=== PATIENT | male | born 1975 | race Caucasian/White ===

== ENCOUNTER 2016-11-06 11:47 | Observation (INO) | payer MEDICARE, MEDICAID ==
[2016-11-05 12:37] LABS: ASPARTATE AMINO TRANSFERASE 24 U/L (15-37); BLOOD UREA NITROGEN 9 mg/dL (7-18)
[~2016-11-06] VITALS: Ht 182.9 cm; Wt 104.5 kg
[~2016-11-06 11:47] MED LIST: ACET325T14 PO; ALBU18HF INH; ALBU8.5H8 INH; BACITRACIN 50,000 UNIT ONE; DIVA500T2 PO; ENOX40SY4 SQ; HYDR-3240 PO; LABE5VIA13 IV; LACT20SO13 PO; LISI-167 PO; LISI1TAB7 PO; MICA100V3 IV; ONDA4SOL2 IV; ONDA4TAB10 PO; OXYC10TA6 PO; OXYC5TAB3 PO; PANT40VI IV; PIPE4.5V3 IV; POLY1POW PO; SENN-1 PO; VANC1VIA3 PO; VARE0.5T PO
[2016-11-06] MEDS ORDERED: LACTATED RINGERS 1,000 ML IV SCH (12:26)
[2016-11-06 12:28] LABS: DAU SCREEN DISCLAIMER
[2016-11-06] MEDS ORDERED: HYDR-3240 PO (12:28)
[2016-11-06] MEDS ORDERED: OXYC5CAP2 PO (12:28)
[2016-11-06] MEDS ORDERED: LIDOCAINE 1%, 2ML SQ PRN (12:30)
[2016-11-06] MEDS ORDERED: MIDAZOLAM 1 MG/ML, 2ML ONE (13:30)
[2016-11-06] MEDS ORDERED: FENTANYL PF 500 MCG/10ML ONE (13:30)
[2016-11-06] MEDS ORDERED: ALBUTEROL SULFATE 200 PUFFS/8.5 GR INH ONE (13:38)
[2016-11-06] MEDS ORDERED: ROCURONIUM 10 MG/ML ONE (13:38)
[2016-11-06] MEDS ORDERED: ONDANSETRON 2MG/ML, 2ML ONE (13:38)
[2016-11-06] MEDS ORDERED: PROPOFOL 10 MG/ML, 20ML ONE (13:38)
[2016-11-06] MEDS ORDERED: DEXAMETHASONE 4 MG/ML, 1ML ONE (13:38)
[2016-11-06] MEDS ORDERED: SUCCINYLCHOLINE 20 MG/ML, 10ML ONE (13:38)
[2016-11-06] MEDS ORDERED: CEFAZOLIN 1,000 MG ONE (13:38)
[2016-11-06] MEDS ORDERED: METOPROLOL 1 MG/ML, 5ML IV PRN (14:00)
[2016-11-06] MEDS ORDERED: ALBUTEROL/IPRATROPIUM 2.5MG/0.5MG, 3 ML NPPB PRN (14:00)
[2016-11-06] MEDS ORDERED: FENTANYL PF 100 MCG/2ML IV PRN (14:00)
[2016-11-06] MEDS ORDERED: OXYcodone 5 MG/5 ML ORAL.SOL UDC PO PRN (14:00)
[2016-11-06] MEDS ORDERED: MIDAZOLAM 1 MG/ML, 2ML IV PRN (14:00)
[2016-11-06] MEDS ORDERED: ONDANSETRON 2MG/ML, 2ML IVPush PRN ×2 (14:00→16:30)
[2016-11-06] MEDS ORDERED: MEPERIDINE/PF 25MG/0.5ML IVPush PRN (14:00)
[2016-11-06] MEDS ORDERED: EPHEDRINE 50 MG/ML, 1ML IVPush PRN (14:00)
[2016-11-06] MEDS ORDERED: PROMETHAZINE 25 MG/ML, 1ML IV PRN (14:00)
[2016-11-06] MEDS ORDERED: HYDROmorphone 1 MG/ML, 1ML IV PRN (14:00)
[2016-11-06] MEDS ORDERED: hydrALAzine 20 MG/ML, 1ML IV PRN (14:00)
[2016-11-06] MEDS ORDERED: ALBUTEROL/IPRATROPIUM 2.5MG/0.5MG, 3 ML ONE (14:49)
[2016-11-06 15:50] VITALS: BP 141/91
[2016-11-06] MEDS ORDERED: ALBUTEROL SULFATE 2.5MG/0.5ML NPPB PRN (16:30)
[2016-11-06] MEDS ORDERED: HYDROmorphone 2 MG/ML, 1ML IVPush PRN (16:30)
[2016-11-06] MEDS ORDERED: HYDROcodone/APAP 5/325 TABLET PO PRN (16:30)
[2016-11-06] MEDS ORDERED: HYDROmorphone 2MG TABLET PO PRN (16:30)
[2016-11-06] MEDS: OXYcodone/APAP 5/325MG TABLET PO PRN (17:10)
[2016-11-06] MEDS: morphine SULFATE 10 MG/ML, 1ML IVPush PRN ×2 (18:23→20:52)
[2016-11-06 20:02] VITALS: BP 135/93
[2016-11-06] MEDS: LACTATED RINGERS 1,000 ML IV SCH (20:47)
[2016-11-06] MEDS: DIVALPROEX 500 MG TABLET.DR PO SCH (20:48)
[2016-11-06 23:59] VITALS: BP 135/93
[2016-11-07 02:59] VITALS: BP 126/60
[2016-11-07] MEDS: OXYcodone/APAP 5/325MG TABLET PO PRN ×3 (03:54→13:00)
[2016-11-07] MEDS: LACTATED RINGERS 1,000 ML IV SCH ×2 (04:50→13:00)
[2016-11-07] MEDS ORDERED: ENOXAPARIN 40 MG/0.4 ML SQ SCH (06:00)
[2016-11-07 06:43] VITALS: BP 120/72
[2016-11-07] MEDS: DIVALPROEX 500 MG TABLET.DR PO SCH (07:40)
[2016-11-07] MEDS: morphine SULFATE 10 MG/ML, 1ML IVPush PRN (07:40)
[2016-11-07] MEDS ORDERED: LISINOPRIL 10 MG TABLET PO SCH (09:00)
[2016-11-07 15:50] VITALS: BP 121/80
[2016-11-07] MEDS ORDERED: HYDR2TAB29 PO (16:28)
[2016-11-07] MEDS ORDERED: PNEUMOCOCCAL 23 VACCINE IM-VACC ONE (18:30)
[2016-11-07 18:40] VITALS: BP 120/77
== END 2016-11-07 18:46 | disposition home or self-care (01) ==
LOC: OUT 11:47 → 4NOR 15:50 → UNDOADMOB 16:29 → 4NOR 16:29
PROVIDERS: ADMIT Surgery; ATTEND Surgery
DX: K43.2 Incisional hernia without obstruction or gangrene (principal); E66.9 Obesity, unspecified; G47.30 Sleep apnea, unspecified; I10 Essential (primary) hypertension; K66.0 Peritoneal adhesions (postprocedural) (postinfection); Z23 Encounter for immunization
CPT/HCPCS: 36415; 49560; 80053; 80307; 90471; 90732; 94640; 96372; 96374; 96376; C1781; G0378; J0330; J0690; J1100; J1650; J2175; J2250; J2270; J2405; J2704; J3010; J3490; J7120; J7620

== ENCOUNTER 2016-11-09 19:25 | Emergency (ER) | payer MEDICARE, MEDICAID ==
[~2016-11-09] VITALS: Ht 182.9 cm; Wt 105.6 kg
[~2016-11-09 19:25] MED LIST changes: -BACITRACIN 50,000 UNIT ONE; +HYDR2TAB29 PO; +OXYC5CAP2 PO
[2016-11-09] MEDS ORDERED: HYDROmorphone 1 MG/ML, 1ML ONE (20:19)
[2016-11-09] MEDS ORDERED: ONDANSETRON 2MG/ML, 2ML ONE (20:19)
[2016-11-09 20:24] LABS: HEMATOCRIT 43.4 % (39.2-51.8); HEMOGLOBIN 14.8 g/dL (13.7-18.0); WHITE BLOOD COUNT 9.1 x10^3/uL (3.4-10)
[2016-11-09] MEDS ORDERED: SODIUM CHLORIDE 0.9% 1,000ML IVBOLUS ONE (20:30)
[2016-11-09] MEDS ORDERED: SODIUM CHLORIDE FLUSH 10ML SYR IVF ONE (20:30)
[2016-11-09] MEDS ORDERED: HYDROmorphone 1 MG/ML, 1ML IVPush PRN (20:30)
[2016-11-09] MEDS ORDERED: ONDANSETRON 2MG/ML, 2ML IVPush ONE (20:30)
[2016-11-09 20:36] LABS: ASPARTATE AMINO TRANSFERASE 30 U/L (15-37); BLOOD UREA NITROGEN 21 mg/dL (7-18)
[2016-11-09 21:27] VITALS: BP 121/70
[2016-11-09] MEDS ORDERED: OMNIPAQUE 350 MG/ML, 100ML BOTTLE ONE (22:27)
== END 2016-11-09 22:09 | disposition home or self-care (01) ==
LOC: ED 21:50
DX: G89.18 Other acute postprocedural pain (principal); R10.84 Generalized abdominal pain; J45.909 Unspecified asthma, uncomplicated; I10 Essential (primary) hypertension; E78.00 Pure hypercholesterolemia, unspecified; G40.909 Epilepsy, unspecified, not intractable, without status epilepticus; Z88.6 Allergy status to analgesic agent
CPT/HCPCS: 36415; 74177; 80053; 83605; 84145; 85025; 87040; 96374; 96375; 99285; J1170; J2405; Q9967

== ENCOUNTER 2016-11-20 15:45 | Day surgery (SDC) | payer MEDICARE, MEDICAID ==
[~2016-11-20] VITALS: Ht 182.9 cm; Wt 99.7 kg
[2016-11-20] MEDS ORDERED: LIDOCAINE 1%, 2ML ONE (16:09)
[2016-11-20 16:11] VITALS: BP 148/100
[2016-11-20] MEDS ORDERED: MIDAZOLAM 1 MG/ML, 2ML ONE (16:40)
[2016-11-20] MEDS ORDERED: FENTANYL PF 100 MCG/2ML ONE ×3 (16:40→17:35)
[2016-11-20] MEDS ORDERED: CEFOTETAN 2 GM ONE (16:43)
[2016-11-20] MEDS ORDERED: KETOROLAC 30 MG/1 ML ONE (16:43)
[2016-11-20] MEDS ORDERED: PROPOFOL 10 MG/ML, 20ML ONE (16:43)
[2016-11-20] MEDS ORDERED: ONDANSETRON 2MG/ML, 2ML ONE (16:43)
[2016-11-20] MEDS ORDERED: ROCURONIUM 10 MG/ML ONE (16:43)
[2016-11-20] MEDS ORDERED: hydrALAzine 20 MG/ML, 1ML IV PRN (17:30)
[2016-11-20] MEDS ORDERED: LABETALOL 5MG/ML, 20ML IV PRN (17:30)
[2016-11-20] MEDS ORDERED: MEPERIDINE/PF 25MG/0.5ML IVPush PRN (17:30)
[2016-11-20] MEDS ORDERED: OXYcodone 5 MG/5 ML ORAL.SOL UDC PO PRN (17:30)
[2016-11-20] MEDS ORDERED: HYDROmorphone 1 MG/ML, 1ML IV PRN (17:30)
[2016-11-20] MEDS ORDERED: PROMETHAZINE 25 MG/ML, 1ML IV PRN (17:30)
[2016-11-20] MEDS ORDERED: ONDANSETRON 2MG/ML, 2ML IVPush PRN ×2 (17:30→19:30)
[2016-11-20] MEDS ORDERED: ACETAMINOPHEN 325 MG TABLET PO PRN (17:30)
[2016-11-20] MEDS ORDERED: FENTANYL PF 100 MCG/2ML IV PRN (17:30)
[2016-11-20] MEDS ORDERED: ACETAMINOPHEN 650 MG/20.3 ML UDC ONE (17:35)
[2016-11-20] MEDS ORDERED: ACETAMINOPHEN 325 MG TABLET ONE (17:36)
[2016-11-20] MEDS ORDERED: OXYcodone 5 MG/5 ML ORAL.SOL UDC ONE (17:36)
[2016-11-20 18:40] VITALS: BP 122/74
[2016-11-20] MEDS ORDERED: MORPHINE SULFATE 4 MG/ML, 1ML IVPush PRN (19:00)
[2016-11-20] MEDS ORDERED: LACTATED RINGERS 1,000 ML IV SCH (19:00)
[2016-11-20] MEDS ORDERED: OXYcodone/APAP 5/325MG TABLET PO PRN (19:30)
[2016-11-20] MEDS ORDERED: HYDROmorphone 2 MG/ML, 1ML IV PRN (19:30)
[2016-11-20] MEDS ORDERED: HYDROcodone/APAP 5/325 TABLET PO PRN (19:30)
[2016-11-20] MEDS ORDERED: OXYC-302 PO (19:52)
[2016-11-20] MEDS ORDERED: CLIN300C8 PO (19:53)
== END 2016-11-20 20:24 | disposition home or self-care (01) ==
LOC: OR 15:45 → 4NOR 18:19 → OR 20:24
PROVIDERS: ATTEND Surgery
DX: L76.82 Other postprocedural complications of skin and subcutaneous tissue (principal); Y83.8 Other surgical procedures as the cause of abnormal reaction of the patient, or of later complication, without mention of misadventure at the time of the procedure; Y92.9 Unspecified place or not applicable; Z91.013 Allergy to seafood; Z88.6 Allergy status to analgesic agent; F17.200 Nicotine dependence, unspecified, uncomplicated; K21.9 Gastro-esophageal reflux disease without esophagitis; I10 Essential (primary) hypertension; F12.90 Cannabis use, unspecified, uncomplicated
CPT/HCPCS: 11000; J1885; J2250; J2405; J2704; J3010; S0074

== ENCOUNTER 2017-08-02 13:49 | Emergency (ER) | payer MEDICARE, MEDICAID ==
[~2017-08-02] VITALS: Ht 182.9 cm; Wt 93.0 kg
[~2017-08-02 13:49] MED LIST changes: +CLIN300C8 PO; +OXYC-302 PO
[2017-08-02 13:52] VITALS: BP 131/81
[2017-08-02] MEDS ORDERED: OXYcodone/APAP 5/325MG TABLET ONE (14:20)
[2017-08-02] MEDS ORDERED: OXYcodone/APAP 5/325MG TABLET PO ONE (14:30)
== END 2017-08-02 16:22 | disposition home or self-care (01) ==
LOC: ED 16:00
DX: S16.1XXA Strain of muscle, fascia and tendon at neck level, initial encounter (principal); S46.812A Strain of other muscles, fascia and tendons at shoulder and upper arm level, left arm, initial encounter; S60.212A Contusion of left wrist, initial encounter; S50.12XA Contusion of left forearm, initial encounter; F17.200 Nicotine dependence, unspecified, uncomplicated; W17.89XA Other fall from one level to another, initial encounter; Y93.89 Activity, other specified; Y92.099 Unspecified place in other non-institutional residence as the place of occurrence of the external cause; Y99.8 Other external cause status
CPT/HCPCS: 72125; 99284

== ENCOUNTER 2017-11-06 21:34 | Emergency (ER) | payer MEDICARE, MEDICAID ==
[~2017-11-06] VITALS: Ht 182.9 cm; Wt 98.1 kg
[~2017-11-06 21:34] MED LIST changes: -SENN-1 PO; +SENN-92 PO
[2017-11-06] MEDS ORDERED: HYDROcodone/APAP 5/325 TABLET ONE (22:58)
[2017-11-06] MEDS ORDERED: HYDROcodone/APAP 5/325 TABLET PO ONE (23:00)
[2017-11-06 23:13] VITALS: BP 150/95
== END 2017-11-07 00:17 | disposition home or self-care (01) ==
LOC: ED 23:59
DX: S46.911A Strain of unspecified muscle, fascia and tendon at shoulder and upper arm level, right arm, initial encounter (principal); E78.00 Pure hypercholesterolemia, unspecified; I10 Essential (primary) hypertension; G40.909 Epilepsy, unspecified, not intractable, without status epilepticus; W22.8XXA Striking against or struck by other objects, initial encounter; Y93.89 Activity, other specified; Y99.8 Other external cause status; Y92.89 Other specified places as the place of occurrence of the external cause
CPT/HCPCS: 99284

== ENCOUNTER 2018-04-22 19:39 | Emergency (ER) | payer MEDICARE, MEDICAID ==
[~2018-04-22] VITALS: Ht 182.9 cm; Wt 106.6 kg
[2018-04-22 19:53] VITALS: BP 179/115
[2018-04-22 20:45] LABS: BASOPHILS # (AUTO) 0.03 x10^3/uL (0-0.1); BASOPHILS % (AUTO) 1 % (0-1); EOSINOPHILS # (AUTO) 0.18 x10^3/uL (0-0.4); EOSINOPHILS % (AUTO) 3 % (1-7); LYMPHOCYTES # (AUTO) 1.91 x10^3/uL (1-3.4); LYMPHOCYTES % (AUTO) 29 % (22-44); MD NO; MEAN CORPUSCULAR HEMOGLOBIN 30.9 pg (27.5-34.5); MEAN CORPUSCULAR HGB CONC 34.5 g/dL (33.2-36.2); MEAN CORPUSCULAR VOLUME 89.6 fL (81-97); MEAN PLATELET VOLUME 7.9 fL (7.4-10.4); MONOCYTES # (AUTO) 0.55 x10^3/uL (0.2-0.8); MONOCYTES % (AUTO) 8 % (2-9); NEUTROPHILS # (AUTO) 3.91 x10^3/uL (1.8-6.8); NEUTROPHILS % (AUTO) 59 % (42-75); PLATELET COUNT 232 x10^3/uL (130-400); RED BLOOD COUNT 5.56 x10^6/uL (4.38-5.82); RED CELL DISTRIBUTION WIDTH 13.3 % (9.4-14.8)
[2018-04-22 20:56] LABS: ANION GAP 4 mmol/L (5-15); CALCIUM 8.8 mg/dL (8.5-10.1); CHLORIDE 107 mmol/L (98-107); CREATININE 0.93 mg/dL (0.7-1.3)
--- NOTE | 2018-04-22 22:23 | NUR ---
PT NOT IN LOBBY WHEN CALLED FOR VITALS @ [id number].
--- NOTE | 2018-04-22 22:43 | NUR ---
NO ANSWER WHEN CALLED IN LOBBY
--- NOTE | 2018-04-22 22:59 | NUR ---
NOT IN LOBBY WHEN CALLED FOR ROOM
== END 2018-04-22 23:01 | disposition left against medical advice (07) ==
LOC: ED 22:55
DX: S69.91XA Unspecified injury of right wrist, hand and finger(s), initial encounter (principal); W18.30XA Fall on same level, unspecified, initial encounter; Y93.9 Activity, unspecified; Y92.89 Other specified places as the place of occurrence of the external cause; Y99.8 Other external cause status
CPT/HCPCS: 36415; 80048; 85025; 99284

== ENCOUNTER 2018-04-23 13:33 | Emergency (ER) | payer MEDICARE, MEDICAID ==
[2018-04-23 14:58] LABS: BASOPHILS # (AUTO) 0.03 x10^3/uL (0-0.1); BASOPHILS % (AUTO) 1 % (0-1); EOSINOPHILS # (AUTO) 0.22 x10^3/uL (0-0.4); EOSINOPHILS % (AUTO) 3 % (1-7); LYMPHOCYTES # (AUTO) 1.94 x10^3/uL (1-3.4); LYMPHOCYTES % (AUTO) 26 % (22-44); MD NO; MEAN CORPUSCULAR HEMOGLOBIN 30.8 pg (27.5-34.5); MEAN CORPUSCULAR HGB CONC 34.6 g/dL (33.2-36.2); MEAN CORPUSCULAR VOLUME 88.9 fL (81-97); MONOCYTES # (AUTO) 0.71 x10^3/uL (0.2-0.8); MONOCYTES % (AUTO) 9 % (2-9); NEUTROPHILS # (AUTO) 4.66 x10^3/uL (1.8-6.8); NEUTROPHILS % (AUTO) 62 % (42-75); PLATELET COUNT 230 x10^3/uL (130-400); RED BLOOD COUNT 5.69 x10^6/uL (4.38-5.82); RED CELL DISTRIBUTION WIDTH 12.8 % (9.4-14.8)
[2018-04-23 15:11] LABS: ALBUMIN 3.8 g/dL (3.4-5.0); ANION GAP 6 mmol/L (5-15); CALCIUM 8.9 mg/dL (8.5-10.1); CHLORIDE 106 mmol/L (98-107)
[2018-04-23 15:15] LABS: ALANINE AMINOTRANSFERASE 94 U/L (12-78); ALKALINE PHOSPHATASE 79 U/L (45-117); BILIRUBIN,TOTAL 0.5 mg/dL (0.2-1.0); CREATININE 0.92 mg/dL (0.7-1.3); TOTAL PROTEIN 7.7 g/dL (6.4-8.2)
--- NOTE | 2018-04-23 16:18 | NUR ---
pt to ed for lower abd and periumbilical pain (similar to previous hernias) x1 week, worse since last night. pt states also feels constipated with cramping. currently resting in room with family at bedside. no needs at this time. awaitin gmd assessment.
[2018-04-23 16:31] LABS: MICROSCOPIC NOT IND
[2018-04-23 16:36] LABS: CULTURE INDICATED? NO
[2018-04-23] MEDS ORDERED: SODIUM CHLORIDE FLUSH 10ML SYR IVF ONE (17:00)
--- NOTE | 2018-04-23 17:19 | NUR ---
MD ORDERS RECEIVED. IV ESTABLISHED. AWAITING CT. CALL LIGHT WITHIN REACH. NO NEEDS AT THIS TIME.
[2018-04-23] MEDS ORDERED: OMNIPAQUE 350 MG/ML, 100ML BOTTLE ONE (17:54)
--- NOTE | 2018-04-23 18:40 | NUR ---
CARE FOR RN BREAK PROVIDED: DR VARELA AT BEDSIDE TO ALTAGRACIA STOKES.
--- NOTE | 2018-04-23 18:52 | NUR ---
CARE FOR DC PROVIDED. PT DRESSED IN ROOM, IV DC'D WITH CANNULA INTACT. REVIEWED DC INSTRUCTIONS WITH PT. UNDERSTANDING VERBALIZED. PT LEFT AMB, GAIT STEADY.
[2018-04-23 18:53] VITALS: BP 140/90
== END 2018-04-23 18:55 | disposition home or self-care (01) ==
LOC: ED 16:47
DX: K43.9 Ventral hernia without obstruction or gangrene (principal); G40.909 Epilepsy, unspecified, not intractable, without status epilepticus; I10 Essential (primary) hypertension; E78.5 Hyperlipidemia, unspecified; E78.00 Pure hypercholesterolemia, unspecified; J45.909 Unspecified asthma, uncomplicated; F17.200 Nicotine dependence, unspecified, uncomplicated; Z90.89 Acquired absence of other organs
CPT/HCPCS: 36415; 74021; 74177; 80053; 81003; 83690; 85025; 99284; Q9967

== ENCOUNTER 2019-05-12 19:16 | Emergency (ER) | payer MEDICARE, MEDICAID ==
[~2019-05-12] VITALS: Ht 185.4 cm; Wt 103.6 kg
[~2019-05-12 19:16] MED LIST changes: +LISI1TAB20 PO; -LISI1TAB7 PO
[2019-05-12 20:14] VITALS: BP 143/104
== END 2019-05-12 20:56 | disposition home or self-care (01) ==
LOC: ED 20:15
DX: S60.222A Contusion of left hand, initial encounter (principal); E78.5 Hyperlipidemia, unspecified; E78.00 Pure hypercholesterolemia, unspecified; Z88.6 Allergy status to analgesic agent
CPT/HCPCS: 29125; 99283